=== PATIENT | female | born 1940 | race Caucasian/White ===

== ENCOUNTER 2020-09-02 15:18 | Inpatient (IN) ==
[2020-09-02] MEDS ORDERED: Isovue-370 500 ML BOTTLE IVP ONE ×2 (15:29→23:43)
[2020-09-02 16:09] LABS: Basophils % 0.2 %; Hematocrit 29.5 % (35.3-44.9); Immature Granulocytes % 0.4 % (0-4); Lymphocytes # 2.2 K/mcL (0.6-4.6); Lymphocytes % 17.9 %; Mean Corpuscular HGB Conc 30.5 g/dL (31.6-35.5); Mean Corpuscular Volume 98.3 fL (83.0-100.0); Mean Platelet Volume 10.1 fL (9.4-12.4); Monocytes # 1.3 K/mcL (0.0-1.3); Monocytes % 10.5 %; Neutrophils # 8.9 K/mcL (1.6-8.9); Platelet Count 159 K/mcL (140-400); Red Cell Distribution Width 14.1 % (11.5-14.5); White Blood Count 12.5 K/mcL (4.3-11.1)
[2020-09-02 16:14] LABS: INR 1.3; Prothrombin Time 15.2 Seconds (9.4-12.1)
[2020-09-02 16:17] LABS: Activated Partial Thrombo Time 27.8 Seconds (26.0-36.0)
[2020-09-02 16:29] LABS: Calcium 9.6 mg/dL (8.6-10.3); Potassium 4.1 mEq/L (3.5-5.1)
[2020-09-02 16:32] LABS: Bilirubin,Urine Moderate (Negative); Blood,Urine Moderate (Negative); Clarity,Urine Ex.Turbid (Clear); Color,Urine Dark-Red (Yellow); Glucose,Urine (UA) Normal (Normal); Ketones,Urine 10 mg/dL (Negative); Leukocyte Esterase,Urine Moderate (Negative); Nitrite,Urine Positive (Negative); PH,Urine 6.5 pH Units (5.0-8.0); Protein,Urine 70 mg/dL (Neg-Trace); Urobilinogen,Urine >=8.0 mg/dL (Normal)
[2020-09-02 16:33] LABS: RBC,Urine TNTC per hpf (0-3)
[2020-09-02] MEDS ORDERED: *HR* FentaNYL (PF) 100 MCG/2 ML VIAL IVP ONE ×2 (19:40→21:56)
[2020-09-02] MEDS ORDERED: cefTRIAXone 1,000 MG in Water for inj. (sterile) 10 ML IVP ONE (20:58)
[2020-09-02] MEDS ORDERED: Naloxone 0.4 MG/ML INJ IVP PRN (21:20)
[2020-09-02] MEDS ORDERED: *HR* Promethazine 25 MG/ML VIAL IVP PRN (21:20)
[2020-09-02] MEDS ORDERED: Acetaminophen 325 MG TABLET PO PRN (21:20)
[2020-09-02] MEDS ORDERED: Budesonide/Formoterol 160/4.5 1 PUFF INH IH PRN (21:24)
[2020-09-02] MEDS ORDERED: NON-FORMULARY MEDICATION 1 EACH EACH (Oxygen 2 L) NS SCH (21:30)
[2020-09-02 22:28] LABS: Adenovirus Not Detected (Not Detect); Bordetella Pertussis Not Detected (Not Detect); Chlamydophila pneumoniae Not Detected (Not Detect); Coronavirus 229E Not Detected (Not Detect); Coronavirus HKU1 Not Detected (Not Detect); Coronavirus NL63 Not Detected (Not Detect); Coronavirus OC43 Not Detected (Not Detect); Human Metapneumovirus Not Detected (Not Detect); Human Rhinovirus/Enterovirus Not Detected (Not Detect); Influenza A Subtype 2009 H1 Not Detected (Not Detect); Influenza B Not Detected (Not Detect); Mycoplasma pneumoniae Not Detected (Not Detect); Parainfluenza Virus 1 Not Detected (Not Detect); Parainfluenza Virus 2 Not Detected (Not Detect); Parainfluenza Virus 3 Not Detected (Not Detect); Parainfluenza Virus 4 Not Detected (Not Detect); Respiratory Syncytial Virus Not Detected (Not Detect); SARS-CoV-2 Not Detected (Not Detect)
[2020-09-03] MEDS: *HR* HYDROmorphone (PF) 1 MG/ML SYRINGE IVP PRN ×2 (00:44→12:04)
[2020-09-03] MEDS: 0.9 % Sodium Chloride 1,000 ML IVC SCH ×2 (01:11→09:46)
[2020-09-03 05:17] LABS: Basophils % 0.2 %; Hematocrit 25.4 % (35.3-44.9); Hemoglobin 7.8 g/dL (11.5-15.4); Immature Granulocytes % 0.3 % (0-4); Lymphocytes # 2.7 K/mcL (0.6-4.6); Mean Corpuscular HGB Conc 30.7 g/dL (31.6-35.5); Mean Corpuscular Volume 100.8 fL (83.0-100.0); Mean Platelet Volume 10.6 fL (9.4-12.4); Monocytes # 1.1 K/mcL (0.0-1.3); Monocytes % 9.5 %; Neutrophils # 7.8 K/mcL (1.6-8.9); Platelet Count 146 K/mcL (140-400); Red Blood Count 2.52 M/mcL (3.82-4.97); Red Cell Distribution Width 14.3 % (11.5-14.5); White Blood Count 11.7 K/mcL (4.3-11.1)
[2020-09-03 05:22] LABS: INR 1.4; Prothrombin Time 15.8 Seconds (9.4-12.1)
[2020-09-03 05:36] LABS: BUN/Creatinine Ratio 32 (6-26); Blood Urea Nitrogen 30 mg/dL (8-23); Calcium 8.5 mg/dL (8.6-10.3); Carbon Dioxide 24 mEq/L (23-29); Chloride 104 mEq/L (98-107); Glucose 111 mg/dL (70-105); Osmolality,Calculated 291 (280-300); Phosphorous 4.3 mg/dL (2.7-4.5); Sodium 137 mEq/L (136-145); eGFR For African Americans > 60 (> 60); eGFR For Non-African Americans 57 (> 60)
[2020-09-03 05:37] LABS: % Iron Saturation 8 % (15-50); Iron 33 mcg/dL (50-170); Transferrin 291 mg/dL (203-362)
[2020-09-03 05:55] LABS: Ferritin 33 ng/mL (10-120)
[2020-09-03 06:03] LABS: Folate > 22.3 ng/mL (3.0-16.0); Vitamin B12 181 pg/mL (250-1100)
[2020-09-03] MEDS: cefTRIAXone 1,000 MG in Water for inj. (sterile) 10 ML IVP SCH (07:46)
[2020-09-03] MEDS: Ipratropium/Albuterol Neb 3 ML IH SCH ×4 (11:30→23:42)
[2020-09-03] MEDS ORDERED: *HR* Belladonna Alkaloids/Opium 60 MG RECTAL SUPPOSITORY RC PRN (15:28)
[2020-09-03 17:36] LABS: Hematocrit 25.6 % (35.3-44.9); Hemoglobin 7.7 g/dL (11.5-15.4)
[2020-09-03] MEDS: ALPRAZolam 1 MG TABLET PO SCH ×2 (17:54→21:30)
[2020-09-03] MEDS ORDERED: Cyanocobalamin (B-12) 1,000 MCG/ML VIAL SQ ONE (19:53)
[2020-09-03] MEDS: Loratadine 10 MG TABLET PO SCH (21:30)
[2020-09-04 03:31] LABS: Hematocrit 24.1 % (35.3-44.9); Hemoglobin 7.1 g/dL (11.5-15.4); Mean Corpuscular HGB Conc 29.5 g/dL (31.6-35.5); Mean Corpuscular Hemoglobin 30.2 pg (28.0-33.3); Mean Corpuscular Volume 102.6 fL (83.0-100.0); Mean Platelet Volume 10.5 fL (9.4-12.4); Platelet Count 142 K/mcL (140-400); Red Blood Count 2.35 M/mcL (3.82-4.97); Red Cell Distribution Width 14.7 % (11.5-14.5); White Blood Count 8.4 K/mcL (4.3-11.1)
[2020-09-04 03:44] LABS: BUN/Creatinine Ratio 24 (6-26); Blood Urea Nitrogen 20 mg/dL (8-23); Calcium 8.5 mg/dL (8.6-10.3); Carbon Dioxide 26 mEq/L (23-29); Chloride 104 mEq/L (98-107); Glucose 127 mg/dL (70-105); Osmolality,Calculated 288 (280-300); Potassium 3.5 mEq/L (3.5-5.1); Sodium 137 mEq/L (136-145); eGFR For African Americans > 60 (> 60); eGFR For Non-African Americans > 60 (> 60)
[2020-09-04] MEDS: Ipratropium/Albuterol Neb 3 ML IH SCH ×5 (04:04→20:00)
[2020-09-04] MEDS: ALPRAZolam 1 MG TABLET PO SCH ×3 (09:40→22:14)
[2020-09-04] MEDS: cefTRIAXone 1,000 MG in Water for inj. (sterile) 10 ML IVP SCH (09:40)
[2020-09-04] MEDS ORDERED: 0.9 % Sodium Chloride 250 ML ONE (13:59)
[2020-09-04] MEDS ORDERED: *HR* FentaNYL (PF) 100 MCG/2 ML VIAL ONE ×2 (17:46→18:50)
[2020-09-04] MEDS ORDERED: *HR* Propofol 200 MG/20 ML VIAL IVP ONE (17:46)
[2020-09-04] MEDS ORDERED: Lidocaine -MPF 2% 2 ML VIAL ONE (17:46)
[2020-09-04] MEDS ORDERED: Ondansetron 4 MG/2 ML VIAL IVP PRN (18:02)
[2020-09-04] MEDS ORDERED: Morphine Sulfate 2 MG/ML SYRINGE IVP PRN (18:02)
[2020-09-04] MEDS ORDERED: *HR* Succinylcholine 200 MG/10 ML VIAL IVP ONE (18:07)
[2020-09-04] MEDS ORDERED: Lidocaine HCL 4 ML Topical Solution (Laryng-O-Jet Kit Sterile Pak) TP ONE (18:10)
[2020-09-04] MEDS ORDERED: Ondansetron 4 MG/2 ML VIAL ONE (18:14)
[2020-09-04] MEDS ORDERED: Dexamethasone 4 MG/ML VIAL ONE (18:30)
[2020-09-04 20:52] LABS: Hematocrit 34.5 % (35.3-44.9)
[2020-09-04 20:53] LABS: Hemoglobin 10.2 g/dL (11.5-15.4)
[2020-09-04] MEDS ORDERED: *HR* Belladonna Alkaloids/Opium 60 MG RECTAL SUPPOSITORY RC PRN (21:19)
[2020-09-04] MEDS ORDERED: *HR* Promethazine 25 MG/ML VIAL IVP PRN (21:19)
[2020-09-04] MEDS ORDERED: Naloxone 0.4 MG/ML INJ IVP PRN (21:19)
[2020-09-04] MEDS ORDERED: Budesonide/Formoterol 160/4.5 1 PUFF INH IH PRN (22:00)
[2020-09-04] MEDS: Loratadine 10 MG TABLET PO SCH (22:13)
[2020-09-05] MEDS: Ipratropium/Albuterol Neb 3 ML IH SCH ×7 (00:01→23:44)
[2020-09-05 05:58] LABS: Hematocrit 26.9 % (35.3-44.9); Mean Corpuscular HGB Conc 31.2 g/dL (31.6-35.5); Mean Corpuscular Hemoglobin 31.1 pg (28.0-33.3); Mean Corpuscular Volume 99.6 fL (83.0-100.0); Mean Platelet Volume 10.3 fL (9.4-12.4); Platelet Count 137 K/mcL (140-400); Red Cell Distribution Width 15.9 % (11.5-14.5); White Blood Count 4.9 K/mcL (4.3-11.1)
[2020-09-05 06:06] LABS: Hemoglobin 8.4 g/dL (11.5-15.4)
[2020-09-05 06:27] LABS: BUN/Creatinine Ratio 26 (6-26); Blood Urea Nitrogen 14 mg/dL (8-23); Calcium 8.7 mg/dL (8.6-10.3); Carbon Dioxide 26 mEq/L (23-29); Chloride 106 mEq/L (98-107); Glucose 147 mg/dL (70-105); Osmolality,Calculated 287 (280-300); Potassium 4.4 mEq/L (3.5-5.1); Sodium 137 mEq/L (136-145); eGFR For African Americans > 60 (> 60); eGFR For Non-African Americans > 60 (> 60)
[2020-09-05] MEDS: ALPRAZolam 1 MG TABLET PO SCH ×3 (08:27→20:13)
[2020-09-05] MEDS: cefTRIAXone 1,000 MG in Water for inj. (sterile) 10 ML IVP SCH (08:27)
[2020-09-05] MEDS: Loratadine 10 MG TABLET PO SCH (20:13)
[2020-09-05 20:49] LABS: Hematocrit 28.6 % (35.3-44.9); Hemoglobin 8.7 g/dL (11.5-15.4)
[2020-09-06] MEDS: Ipratropium/Albuterol Neb 3 ML IH SCH ×6 (03:50→23:32)
[2020-09-06 06:47] LABS: Hematocrit 30.8 % (35.3-44.9); Hemoglobin 9.3 g/dL (11.5-15.4); Mean Corpuscular HGB Conc 30.2 g/dL (31.6-35.5); Mean Corpuscular Hemoglobin 30.6 pg (28.0-33.3); Mean Corpuscular Volume 101.3 fL (83.0-100.0); Mean Platelet Volume 10.5 fL (9.4-12.4); Platelet Count 179 K/mcL (140-400); Red Blood Count 3.04 M/mcL (3.82-4.97); Red Cell Distribution Width 15.6 % (11.5-14.5)
[2020-09-06 07:07] LABS: BUN/Creatinine Ratio 21 (6-26); Blood Urea Nitrogen 18 mg/dL (8-23); Calcium 8.9 mg/dL (8.6-10.3); Carbon Dioxide 26 mEq/L (23-29); Chloride 103 mEq/L (98-107); Glucose 112 mg/dL (70-105); Osmolality,Calculated 285 (280-300); Potassium 4.1 mEq/L (3.5-5.1); Sodium 136 mEq/L (136-145); eGFR For African Americans > 60 (> 60); eGFR For Non-African Americans > 60 (> 60)
[2020-09-06] MEDS: ALPRAZolam 1 MG TABLET PO SCH ×3 (09:05→20:25)
[2020-09-06] MEDS: cefTRIAXone 1,000 MG in Water for inj. (sterile) 10 ML IVP SCH (09:06)
[2020-09-06] MEDS ORDERED: *HR* HYDROcodone/Acet 5/325 mg TABLET PO ONE (10:28)
[2020-09-06 12:39] LABS: Adenovirus Not Detected (Not Detect); Bordetella Pertussis Not Detected (Not Detect); Chlamydophila pneumoniae Not Detected (Not Detect); Coronavirus 229E Not Detected (Not Detect); Coronavirus HKU1 Not Detected (Not Detect); Coronavirus NL63 Not Detected (Not Detect); Coronavirus OC43 Not Detected (Not Detect); Human Metapneumovirus Not Detected (Not Detect); Human Rhinovirus/Enterovirus Not Detected (Not Detect); Influenza A Subtype 2009 H1 Not Detected (Not Detect); Influenza B Not Detected (Not Detect); Mycoplasma pneumoniae Not Detected (Not Detect); Parainfluenza Virus 1 Not Detected (Not Detect); Parainfluenza Virus 2 Not Detected (Not Detect); Parainfluenza Virus 3 Not Detected (Not Detect); Parainfluenza Virus 4 Not Detected (Not Detect); Respiratory Syncytial Virus Not Detected (Not Detect); SARS-CoV-2 Not Detected (Not Detect)
[2020-09-06 15:05] LABS: Bilirubin,Urine Negative (Negative); Blood,Urine Small (Negative); Clarity,Urine Clear (Clear); Color,Urine Light-Yellow (Yellow); Glucose,Urine (UA) Normal (Normal); Ketones,Urine Negative (Negative); Leukocyte Esterase,Urine Small (Negative); Mucus,Urine Few per lpf (None-Few); Nitrite,Urine Negative (Negative); Protein,Urine 30 mg/dL (Neg-Trace); Renal Epithelial Cells,Urine Few per hpf (None-Few); Specific Gravity,Urine 1.016 (1.010-1.025); Squamous Epithelial Cell,Urine Few per hpf (None-Few); Urobilinogen,Urine Normal (Normal); WBC,Urine 15-30 per hpf (0-3)
[2020-09-06] MEDS: Azithromycin 250 MG TABLET PO SCH (17:09)
[2020-09-06] MEDS: Loratadine 10 MG TABLET PO SCH (20:25)
[2020-09-07] MEDS ORDERED: Acetaminophen 325 MG TABLET PO PRN (03:47)
[2020-09-07] MEDS: Ipratropium/Albuterol Neb 3 ML IH SCH ×5 (04:07→20:18)
[2020-09-07 04:55] LABS: Hematocrit 28.3 % (35.3-44.9); Hemoglobin 8.4 g/dL (11.5-15.4); Mean Corpuscular HGB Conc 29.7 g/dL (31.6-35.5); Mean Corpuscular Hemoglobin 29.5 pg (28.0-33.3); Mean Corpuscular Volume 99.3 fL (83.0-100.0); Mean Platelet Volume 10.5 fL (9.4-12.4); Platelet Count 167 K/mcL (140-400); Red Blood Count 2.85 M/mcL (3.82-4.97); Red Cell Distribution Width 15.5 % (11.5-14.5); White Blood Count 6.8 K/mcL (4.3-11.1)
[2020-09-07 05:00] LABS: BUN/Creatinine Ratio 23 (6-26); Blood Urea Nitrogen 15 mg/dL (8-23); Calcium 8.8 mg/dL (8.6-10.3); Carbon Dioxide 30 mEq/L (23-29); Chloride 104 mEq/L (98-107); Glucose 111 mg/dL (70-105); Osmolality,Calculated 288 (280-300); Potassium 4.1 mEq/L (3.5-5.1); Sodium 138 mEq/L (136-145); eGFR For African Americans > 60 (> 60); eGFR For Non-African Americans > 60 (> 60)
[2020-09-07] MEDS: Azithromycin 250 MG TABLET PO SCH (08:40)
[2020-09-07] MEDS: ALPRAZolam 1 MG TABLET PO SCH ×3 (08:42→21:06)
[2020-09-07] MEDS: cefTRIAXone 1,000 MG in Water for inj. (sterile) 10 ML IVP SCH (08:43)
[2020-09-07] MEDS ORDERED: Isovue-370 500 ML BOTTLE IVP ONE (16:03)
[2020-09-07] MEDS: Cyanocobalamin (B-12) 1,000 MCG/ML VIAL SQ SCH (18:31)
[2020-09-07] MEDS ORDERED: Piperacillin/Tazobactam 3.375 GM in 0.9 % Sodium Chloride Mini Bag 100 ML IVPB SCH (19:00)
[2020-09-07] MEDS: Loratadine 10 MG TABLET PO SCH (21:06)
[2020-09-07] MEDS: QUEtiapine Fumarate 25 MG TABLET PO SCH (21:06)
[2020-09-08] MEDS: Piperacillin/Tazobactam 3.375 GM in 0.9 % Sodium Chloride Mini Bag 100 ML IVPB SCH ×4 (00:15→23:56)
[2020-09-08] MEDS: Ipratropium/Albuterol Neb 3 ML IH SCH ×7 (00:48→23:50)
[2020-09-08] MEDS: *HR* HYDROmorphone (PF) 1 MG/ML SYRINGE IVP PRN ×2 (04:30→11:08)
[2020-09-08 05:42] LABS: BUN/Creatinine Ratio 17 (6-26); Blood Urea Nitrogen 10 mg/dL (8-23); Calcium 8.4 mg/dL (8.6-10.3); Carbon Dioxide 29 mEq/L (23-29); Chloride 103 mEq/L (98-107); Glucose 99 mg/dL (70-105); Osmolality,Calculated 285 (280-300); Potassium 4.3 mEq/L (3.5-5.1); Sodium 138 mEq/L (136-145); eGFR For African Americans > 60 (> 60); eGFR For Non-African Americans > 60 (> 60)
[2020-09-08 06:48] LABS: Hemoglobin 8.3 g/dL (11.5-15.4); Red Blood Count 2.79 M/mcL (3.82-4.97); White Blood Count 6.6 K/mcL (4.3-11.1)
[2020-09-08 06:49] LABS: Hematocrit 28.1 % (35.3-44.9); Mean Corpuscular HGB Conc 29.5 g/dL (31.6-35.5); Mean Corpuscular Hemoglobin 29.7 pg (28.0-33.3); Mean Corpuscular Volume 100.7 fL (83.0-100.0); Mean Platelet Volume 10.6 fL (9.4-12.4); Platelet Count 181 K/mcL (140-400); Red Cell Distribution Width 15.3 % (11.5-14.5)
[2020-09-08] MEDS ORDERED: Furosemide 20 MG/2 ML VIAL IVP ONE (09:05)
[2020-09-08] MEDS ORDERED: Albuterol 2.5 MG/3 ML NEBULIZER IH PRN (09:06)
[2020-09-08] MEDS: ALPRAZolam 1 MG TABLET PO SCH ×3 (09:34→20:27)
[2020-09-08] MEDS: Cyanocobalamin (B-12) 1,000 MCG/ML VIAL SQ SCH (09:35)
[2020-09-08] MEDS ORDERED: *HR* HYDROcodone/Acet 5/325 mg TABLET PO PRN (14:39)
[2020-09-08] MEDS: QUEtiapine Fumarate 25 MG TABLET PO SCH (20:24)
[2020-09-08] MEDS: Loratadine 10 MG TABLET PO SCH (20:28)
[2020-09-09] MEDS: Nystatin SUSP 5 ML UD.LIQ PO SCH ×2 (00:51→08:45)
[2020-09-09] MEDS: Ipratropium/Albuterol Neb 3 ML IH SCH ×3 (03:47→11:31)
[2020-09-09 06:18] LABS: Hematocrit 30.1 % (35.3-44.9); Hemoglobin 9.1 g/dL (11.5-15.4); Mean Corpuscular HGB Conc 30.2 g/dL (31.6-35.5); Mean Corpuscular Volume 102.4 fL (83.0-100.0); Mean Platelet Volume 10.1 fL (9.4-12.4); Platelet Count 184 K/mcL (140-400); Red Blood Count 2.94 M/mcL (3.82-4.97); Red Cell Distribution Width 15.2 % (11.5-14.5)
[2020-09-09 06:40] LABS: BUN/Creatinine Ratio 15 (6-26); Blood Urea Nitrogen 11 mg/dL (8-23); Calcium 8.9 mg/dL (8.6-10.3); Carbon Dioxide 31 mEq/L (23-29); Chloride 103 mEq/L (98-107); Glucose 103 mg/dL (70-105); Osmolality,Calculated 292 (280-300); Potassium 3.9 mEq/L (3.5-5.1); Sodium 141 mEq/L (136-145); eGFR For African Americans > 60 (> 60); eGFR For Non-African Americans > 60 (> 60)
[2020-09-09] MEDS: Piperacillin/Tazobactam 3.375 GM in 0.9 % Sodium Chloride Mini Bag 100 ML IVPB SCH (08:41)
[2020-09-09] MEDS: ALPRAZolam 1 MG TABLET PO SCH (08:42)
[2020-09-09] MEDS: Cyanocobalamin (B-12) 1,000 MCG/ML VIAL SQ SCH (08:42)
[2020-09-09 10:31] VITALS: BP 128/77
[2020-09-09] MEDS ORDERED: FLU Vac QV 20-21 (6Month+)/PF 0.5 ML SYRINGE IM ONE (12:12)
== END 2020-09-09 13:15 | disposition home or self-care (01) | DRG 668 ==
LOC: EMEROOARM 15:18 → 3ANU 15:18 → SUATTDRO 22:32 → 3ANU 09-03 00:52
PROVIDERS: ADMIT Internal Medicine; ATTEND Student in an Organized Health Care Education/Training Program

== ENCOUNTER 2021-10-25 17:35 | Inpatient (IN) ==
[2021-10-25 19:02] LABS: Eosinophils % 2.4 %; Hematocrit 32.9 % (35.3-44.9); Hemoglobin 9.9 g/dL (11.5-15.4); Immature Granulocytes % 0.3 % (0-4); Lymphocytes % 23.7 %; Mean Corpuscular HGB Conc 30.1 g/dL (31.6-35.5); Mean Corpuscular Hemoglobin 31.8 pg (28.0-33.3); Mean Corpuscular Volume 105.8 fL (83.0-100.0); Monocytes % 8.2 %; Platelet Count 158 K/mcL (140-400); Red Blood Count 3.11 M/mcL (3.82-4.97); Red Cell Distribution Width 13.2 % (11.5-14.5); Segmented Neutrophils % 65.1 %; White Blood Count 5.7 K/mcL (4.3-11.1)
[2021-10-25 19:03] LABS: Basophils % 0.3 %; Eosinophils # 0.1 K/mcL (0.0-0.6); Lymphocytes # 1.4 K/mcL (0.6-4.6); Monocytes # 0.5 K/mcL (0.0-1.3); Neutrophils # 3.7 K/mcL (1.6-8.9)
[2021-10-25 19:12] LABS: INR 1.1; Prothrombin Time 11.9 Seconds (9.4-12.1)
[2021-10-25 19:15] LABS: Activated Partial Thrombo Time 34.5 Seconds (26.0-36.0)
[2021-10-25 19:37] LABS: Bilirubin,Direct 0.1 mg/dL (0.0-0.2); Bilirubin,Indirect 0.2 mg/dL (0.0-1.0); Bilirubin,Total 0.3 mg/dL (0.3-1.0); Calcium 9.4 mg/dL (8.6-10.3); Globulin 4.2 g/dL (2.4-3.5); Potassium 4.2 mEq/L (3.5-5.1); Total Protein 8.2 g/dL (6.4-8.9); Troponin I 0.1 ng/mL (< 0.04)
[2021-10-25 19:45] LABS: Bacteria,Urine Few per hpf (None-Few); Bilirubin,Urine Negative (Negative); Blood,Urine Moderate (Negative); Clarity,Urine Turbid (Clear); Color,Urine Light-Yellow (Yellow); Glucose,Urine (UA) Normal (Normal); Hyaline Casts,Urine Few per lpf (None Seen); Ketones,Urine Negative (Negative); Leukocyte Esterase,Urine Large (Negative); Mucus,Urine Few per lpf (None-Few); Nitrite,Urine Negative (Negative); Protein,Urine 200 mg/dL (Neg-Trace); RBC,Urine 30-50 per hpf (0-3); Specific Gravity,Urine 1.014 (1.010-1.025); Urobilinogen,Urine Normal (Normal); WBC,Urine TNTC per hpf (0-3)
[2021-10-25] MEDS ORDERED: Naloxone 0.4 MG/ML INJ IVP PRN (20:11)
[2021-10-25] MEDS ORDERED: Ondansetron 4 MG/2 ML VIAL IVP PRN (20:11)
[2021-10-25] MEDS ORDERED: Aspirin 81 MG TAB.CHEW PO ONE (20:15)
[2021-10-25 21:16] LABS: VBG HCO3 27 mEq/L (21-27); VBG PCO2 57 mmHg (41-51); VBG PH 7.28 pH Units (7.32-7.42); VBG PO2 80 mmHg (25-50)
[2021-10-25] MEDS: 0.9 % Sodium Chloride 1,000 ML IVC SCH (22:18)
[2021-10-25] MEDS: Piperacillin/Tazobactam 3.375 GM in 0.9 % Sodium Chloride Mini Bag 100 ML IVPB SCH (23:39)
[2021-10-25] MEDS: Acetaminophen 325 MG TABLET PO PRN (23:39)
[2021-10-26] MEDS: Piperacillin/Tazobactam 3.375 GM in 0.9 % Sodium Chloride Mini Bag 100 ML IVPB SCH ×2 (08:15→15:17)
[2021-10-26] MEDS: Loratadine 10 MG TABLET PO SCH (08:16)
[2021-10-26] MEDS: Cyanocobalamin (B-12) 1,000 MCG TABLET PO SCH (08:16)
[2021-10-26] MEDS: Aspirin Enteric Coated 81 MG Tablet PO SCH (08:16)
[2021-10-26] MEDS: 0.9 % Sodium Chloride 1,000 ML IVC SCH (08:18)
[2021-10-26] MEDS: Acetaminophen 325 MG TABLET PO PRN ×2 (12:08→21:33)
[2021-10-26 18:06] LABS: Basophils % 0.3 %; Eosinophils # 0.1 K/mcL (0.0-0.6); Hematocrit 27.9 % (35.3-44.9); Hemoglobin 8.6 g/dL (11.5-15.4); Immature Granulocytes % 0.3 % (0-4); Lymphocytes # 1.4 K/mcL (0.6-4.6); Lymphocytes % 39.3 %; Mean Corpuscular HGB Conc 30.8 g/dL (31.6-35.5); Mean Corpuscular Hemoglobin 32.8 pg (28.0-33.3); Mean Corpuscular Volume 106.5 fL (83.0-100.0); Mean Platelet Volume 9.9 fL (9.4-12.4); Monocytes # 0.4 K/mcL (0.0-1.3); Monocytes % 12.1 %; Neutrophils # 1.6 K/mcL (1.6-8.9); Platelet Count 125 K/mcL (140-400); Red Blood Count 2.62 M/mcL (3.82-4.97); Red Cell Distribution Width 13.2 % (11.5-14.5); White Blood Count 3.5 K/mcL (4.3-11.1)
[2021-10-26 18:17] LABS: INR 1.1; Prothrombin Time 12.5 Seconds (9.4-12.1)
[2021-10-26 18:28] LABS: Calcium 8.5 mg/dL (8.6-10.3); Magnesium 2.1 mg/dL (1.6-2.6); Potassium 4.1 mEq/L (3.5-5.1); Troponin I 0.09 ng/mL (< 0.04)
[2021-10-26] MEDS: *HR* Heparin 5,000 UNIT/ML VIAL SQ SCH (21:27)
[2021-10-26] MEDS: ALPRAZolam 1 MG TABLET PO PRN (21:33)
[2021-10-27] MEDS: Piperacillin/Tazobactam 3.375 GM in 0.9 % Sodium Chloride Mini Bag 100 ML IVPB SCH ×2 (01:06→09:32)
[2021-10-27] MEDS: Acetaminophen 325 MG TABLET PO PRN ×3 (04:40→22:50)
[2021-10-27] MEDS: *HR* Heparin 5,000 UNIT/ML VIAL SQ SCH ×3 (06:07→22:50)
[2021-10-27 07:20] LABS: Hematocrit 31.1 % (35.3-44.9); Hemoglobin 9.3 g/dL (11.5-15.4); Mean Corpuscular HGB Conc 29.9 g/dL (31.6-35.5); Mean Corpuscular Hemoglobin 32.4 pg (28.0-33.3); Mean Corpuscular Volume 108.4 fL (83.0-100.0); Platelet Count 123 K/mcL (140-400); Red Blood Count 2.87 M/mcL (3.82-4.97); Red Cell Distribution Width 13.1 % (11.5-14.5); White Blood Count 4.2 K/mcL (4.3-11.1)
[2021-10-27 07:38] LABS: Potassium 4.3 mEq/L (3.5-5.1)
[2021-10-27] MEDS: Aspirin Enteric Coated 81 MG Tablet PO SCH (08:53)
[2021-10-27] MEDS: Cyanocobalamin (B-12) 1,000 MCG TABLET PO SCH (08:53)
[2021-10-27] MEDS: Loratadine 10 MG TABLET PO SCH (08:53)
[2021-10-27] MEDS: ALPRAZolam 1 MG TABLET PO PRN ×2 (14:22→22:50)
[2021-10-27] MEDS: Amoxicillin 500 MG CAPSULE PO SCH ×2 (14:22→19:49)
[2021-10-28 03:36] VITALS: O2SAT 100
[2021-10-28] MEDS: Acetaminophen 325 MG TABLET PO PRN (03:42)
[2021-10-28] MEDS: *HR* Heparin 5,000 UNIT/ML VIAL SQ SCH ×2 (05:40→14:23)
[2021-10-28] MEDS: Aspirin Enteric Coated 81 MG Tablet PO SCH (08:04)
[2021-10-28] MEDS: Amoxicillin 500 MG CAPSULE PO SCH ×2 (08:04→14:24)
[2021-10-28] MEDS: ALPRAZolam 1 MG TABLET PO PRN (08:04)
[2021-10-28] MEDS: Cyanocobalamin (B-12) 1,000 MCG TABLET PO SCH (08:04)
[2021-10-28] MEDS: Loratadine 10 MG TABLET PO SCH (08:04)
[2021-10-28 19:24] VITALS: BP 141/78; PULSE 93; TEMP 98
== END 2021-10-28 19:55 | disposition home health service (06) | DRG 689 ==
LOC: EMEROOARM 17:35 → 3ANU 17:35 → SUATTDRO 21:06 → 3ANU 21:40
PROVIDERS: ADMIT Internal Medicine; ATTEND Internal Medicine